=== PATIENT | male | born 2000 | race Caucasian/White ===

== ENCOUNTER 2021-05-11 10:30 | Outpatient (RCR) | payer BC, SELFPAY ==
--- NOTE | 2021-05-11 11:24 | PC.NURSE ---
Unable to compete nursing assessment as patient no longer wants to attend the program. Patient stated he is only here because his parents told him if he does not attend PHP he will have to move out of the house. Worried about the back lash he will receive from his parents. Patient stated he is not able to sit still all day from 9am-1:45 every day as it is summer time and the weather is nice out and he does no't want to be stuck indoors. He also stated the only reason he is here is because it is a fast way for him to get medications. Patient unable to identify with others in the group and stated he does not feel comfortable sharing with the group. He also stated he does not want to hear about others problems as he does not see how this will help him. Stated he does better one to one. Suggested that patient call his therapist to see if he could be seen 2 times a week for more support and he stated he would call. Denied SI or HI. Has the crisis numbers if needed. Patient aware that he can go to any emergency room for help if needed if he felt unsafe.
== END 2021-05-14 09:23 | disposition home or self-care (01) ==
LOC: HO.PHPA 10:30
PROVIDERS: PCP Pediatrics; Visit Provider Psychiatry & Neurology Psychiatry
DX: F33.2 Major depressive disorder, recurrent severe without psychotic features (principal); F41.9 Anxiety disorder, unspecified; F90.9 Attention-deficit hyperactivity disorder, unspecified type; R45.4 Irritability and anger
CPT/HCPCS: 90791; 90853

== ENCOUNTER 2024-10-26 09:02 | Emergency (ER) | payer OTHER, SELFPAY ==
[2024-10-26 09:08] VITALS: BP 144/88; PULSE 82; RESP 18; TEMP 37; O2SAT 99; BMI 25.0
--- NOTE | 2024-10-26 11:41 | ED.WOUNDLAC ---
HPI - Wound/Laceration General Chief Complaint: Wound/Laceration Stated Complaint: Work injury Time Seen by Provider: 10/26/24 11:38 Source: patient Mode of arrival: ambulatory Limitations: no limitations History of Present Illness ED Provider: Mindi LEIVA narrative: Patient is a 23-year-old right-hand dominant male presenting to the emergency department with complaint of laceration to left 2nd finger. States that he was at work and needed to cut a zip tie, while using a utility knife accidentally cut his finger. Denies any weakness, numbness, tingling. Bleeding controlled. Feels Tdap is up-to-date within last 10 years but is unsure if up-to-date within the last 5. Denies any other injuries. Onset (ago): minute(s) Extremity Location: left: hand Place: work Patient tetanus UTD: No Context: accidental Associated symptoms: none Treatments prior to arrival: bandage Related Data Allergies Allergy/AdvReac Type Severity Reaction Status Date / Time Penicillins Allergy Unknown Verified 10/26/24 09:09 Review of Systems Review of Systems: As per HPI Yes all other systems are reviewed and are negative PMFSH Social History Social History Household Members: Family Advance Directives: No Do you have a plan to hurt others: No Plan Physical Exam Vital Signs: Vital Signs: Last Vital Signs Temp 98.6 F 10/26/24 09:08 Pulse 82 10/26/24 09:08 Resp 18 10/26/24 09:08 BP 144/88 H 10/26/24 09:08 Pulse Ox 99 10/26/24 09:08 O2 Del Method Room Air 10/26/24 09:08 BMI result Body Mass Index 25.0 Extrem: Left upper extremity: hand Details: normal capillary refill, neuromotor exam normal, neurosensory exam normal, normal ROM of fingers and laceration 2nd digit radial aspect proximal Details: linear, superficial, with motor nerve function intact and with sensation intact Hand/finger images: 1. 1cm linear laceration to radial aspect of left 2nd finger, no active bleeding Medications Administered Discontinued Medications Generic Name Dose Route Start Last Admin Trade Name Freq PRN Reason Stop Dose Admin Bacitracin 1 appl 10/26/24 11:41 10/26/24 11:51 Bacitracin Oint 0.9 Gm Packet TOPICAL 10/26/24 11:42 1 appl ONCE ONE Administration Protocol Diphtheria/Tetanus/Acell Pertussis 0.5 ml 10/26/24 11:41 10/26/24 11:51 Diphth,Pertus(Acell),Tet Adult 0.5 Ml Syringe IM 10/26/24 11:42 0.5 ml .ONCE ONE Administration Lidocaine HCl 5 ml 10/26/24 11:41 10/26/24 11:51 Lidocaine Hcl 1 % Mpf 5 Ml Vial INFILTRATI 10/26/24 11:42 5 ml ONCE ONE Administration Medical Decision Making Medical Decision Making [facility] Narrative: Patient is a 23-year-old right-hand dominant male presenting to the emergency department with complaint of laceration to left 2nd finger. On exam patient is awake, A+Ox3, VS WNL, afebrile, normal neurological exam without focal deficits, physical exam findings as above. Given reported symptoms and physical exam findings, initial differential includes laceration, tendon injury. Updated Tdap in the ED. Laceration repaired as per procedure note. Wound care instructions and return precautions discussed at bedside. Return for suture removal. Patient verbalized understanding of and agreement with plan. Differential Diagnosis Differential Diagnoses: The differential diagnosis associated with the presentation includes As per [facility] External Record Review External record reviewed: Inpatient record, Office record and Outpatient record Procedures Laceration Laceration 1: Site: hand Side (If applicable): left Size (cm): 1 Description: linear Depth: simple, single layer Local Anesthetic: lidocaine 1% Amount of anesthesia used (mL): 2 Pre-repair: wound explored, irrigated extensively and deep structures intact Skin layer closed with: nylon Size (cm): 5-0 Number of sutures: 3 Technique: simple, interrupted Discharge Plan Discharge Clinical Impression: Laceration of finger of left hand Qualifiers: Encounter type: initial encounter Finger: index finger Damage to nail status: without damage Foreign body presence: without foreign body Qualified Code(s): S61.211A - Laceration without foreign body of left index finger without damage to nail, initial encounter Patient Disposition: Home, Self-Care Instructions: Care For Your Stitches (DC), Laceration (DC), Finger Laceration (ED), Stitches Removal (ED) Additional Instructions: You have been evaluated in the emergency department today for a laceration to your finger. Your laceration was repaired in the emergency department with 3 sutures. Please keep the area surrounding the laceration clean and dry and keep dressing in place for the next 24 hours. After that please change the dressing and assess the wound daily. Do not submerge the wound in water until the stitches has been removed and the wound has fully healed (no washing dishes, swimming, hot tubs, etc. and ESPECIALLY no outdoor water). Keep the area out of direct sunlight for the next 6 months to help prevent scarring. You should have the sutures removed in 7-10 days. If you develop fever, redness, swelling at the site of your laceration, or thick yellow drainage please come back to the ER for a wound check. Stand Alone Forms: Work/School Release Print Language: South African
[2024-10-26] MEDS: Lidocaine HCl 1 % MPF 5 ML VIAL INFILTRATI (11:51)
[2024-10-26] MEDS: Bacitracin Oint 0.9 GM PACKET 1 APPL TOPICAL (11:51)
[2024-10-26] MEDS: Diphth,Pertus(ACell),Tet Adult 0.5 ML SYRINGE IM (11:51)
[2024-10-26 12:39] VITALS: BP 144/88; PULSE 82; RESP 18; TEMP 37; O2SAT 99
== END 2024-10-26 12:40 | disposition home or self-care (01) ==
PROVIDERS: Emergency Provider Emergency Medicine
DX: S61.211A Laceration without foreign body of left index finger without damage to nail, initial encounter (principal); M79.642 Pain in left hand; W26.9XXA Contact with unspecified sharp object(s), initial encounter; Y93.89 Activity, other specified; Y92.89 Other specified places as the place of occurrence of the external cause; Y99.0 Civilian activity done for income or pay; Z23 Encounter for immunization
CPT/HCPCS: 12001; 90471; 90715; 99282; 99284; J2003

== ENCOUNTER 2024-11-02 08:53 | Emergency (ER) | payer OTHER, BC, SELFPAY ==
[2024-11-02 08:55] VITALS: BP 135/88; PULSE 105; RESP 20; TEMP 37.6; O2SAT 98; BMI 25.0
--- NOTE | 2024-11-02 09:14 | ED_ITS ---
HPI - General Adult General Chief complaint: Skin/Abscess/Foreign Body Stated complaint: Suture removal Time Seen by Provider: 11/02/24 09:05 Source: patient Mode of arrival: ambulatory Limitations: no limitations History of Present Illness ED Provider: Mindi LEIVA narrative: Patient is a 23-year-old male presenting to the emergency department for removal of sutures to left index finger placed in this ED on 10/26. Denies any complications. Reports area has been healing well. complaint: suture removal Onset (ago): day(s) Treatments prior to arrival: none Related Data Allergies Allergy/AdvReac Type Severity Reaction Status Date / Time Penicillins Allergy Unknown Verified 11/02/24 08:56 Review of Systems Review of Systems: As per HPI Yes all other systems are reviewed and are negative PMFSH Social History Social History Household Members: Family Advance Directives: No Advance Directives Information Provided: No Physical Exam ED Vital Signs: Vital Signs - 24 hr 11/02/24 08:55 Temperature 99.7 F Pulse Rate 105 H Respiratory Rate 20 Blood Pressure 135/88 Pulse Oximetry 98 Oxygen Delivery Method Room Air BMI result Body Mass Index 25.0 Vital signs have been reviewed and appear to be correct. Blood pressure normal. Heart rate slightly tachycardic. Respiratory rate normal. Temperature normal. Oxygen saturation normal. Extrem Left upper extremity: hand (wound well approximated, no erythema, warmth or won inage, sutures intact) Medical Decision Making Medical Decision Making [facility] Narrative: Patient is a 23-year-old male presenting to the emergency department for removal of sutures to left index finger placed in this ED on 10/26. On exam patient is awake, A+Ox3, VS WNL, afebrile, normal neurological exam without focal deficits, physical exam findings as above. Given reported symptoms and physical exam findings, initial differential includes suture removal, wound check. 3 sutures removed without difficulty with success. Wound care discussed at bedside. Return precautions discussed at bedside. Patient verbalized understanding of and agreement with plan. Differential Diagnosis Differential Diagnoses: The differential diagnosis associated with the presentation includes As per [facility] External Record Review External record reviewed: Inpatient record, Office record and Outpatient record Discharge Plan Discharge Clinical Impression: Visit for suture removal Patient Disposition: Home, Self-Care Instructions: Stitches Removal (ED) Additional Instructions: You were seen in the emergency department today for suture removal. Your wound appears to be healing well. Please keep the area surrounding the wound clean and dry andcover with Band-Aid until fully healed. Do not submerge in water until fully healed. Please continue to assess the wound daily. Keep the area out of direct sunlight for the next 6 months to help prevent scarring. If you develop fever, redness, swelling at the site of your laceration, or thick yellow drainage please come back to the ER for a wound check. Print Language: Turkmen
[2024-11-02 10:27] VITALS: BP 135/88; PULSE 105; RESP 20; TEMP 37.6; O2SAT 98
== END 2024-11-02 10:29 | disposition home or self-care (01) ==
PROVIDERS: Emergency Provider Emergency Medicine; PCP Internal Medicine
DX: Z48.02 Encounter for removal of sutures (principal)
CPT/HCPCS: 99282